=== PATIENT | female | born 1960 | race Caucasian/White ===

== ENCOUNTER → 2017-03-26 | Outpatient (CLI) | payer OTHER ==
[~2017-03-26] MED LIST: DIOVAN160 MG PO; FISH OIL 1,001000 M2 PO; PEPCID20 MG PO; PREMPRO 0.3 MG1 EACH PO; TRILIPIX135 MG PO
== END ==
LOC: RAD 03-22 13:36
DX: Z12.31 Encounter for screening mammogram for malignant neoplasm of breast (principal)

== ENCOUNTER → 2018-06-11 | Outpatient (CLI) | payer OTHER | LOC: RAD 11:21 | DX: Z12.31 Encounter for screening mammogram for malignant neoplasm of breast (principal) ==

== ENCOUNTER → 2018-10-13 | Outpatient (CLI) | payer OTHER ==
--- NOTE | 2018-10-13 14:38 | P ---
[facility] [place] [address] PROCEDURE REPORT Name: NICOLLE CARLSON Room #: REG TOSHIA Flores#: [id number] Admission: 10/13/18 ������������������ Attend Phys: Rangel Sim Discharge: ������������������ Date of : 58 Report #: [id number] THIS REPORT FOR: //name// CC: Rangel Gordon MD DATE OF SERVICE: 10/13/2018 PROCEDURE PERFORMED: Colonoscopy with biopsies. HISTORY OF PRESENT ILLNESS: The patient is a 58-year-old female with a history of colon polyps in 2012, here for a routine followup. She denies any symptoms. No family history of colon cancer. DESCRIPTION OF PROCEDURE: The risks and benefits of the procedure were explained to the patient; those risks including but not limited to bleeding, perforation and the risk of sedation. She understood these risks and gave informed consent. Sedation was given using propofol per Anesthesia. Next, a digital rectal exam was initially performed, which was normal. Next, using a standard Olympus colonoscope, the scope was placed in the patient's anus and advanced under direct vision to the cecum. The overall prep was excellent. The cecum and ileocecal valve were normal in appearance. Ascending, transverse and descending colon were normal. A few small diverticula were noted in the sigmoid colon; no evidence of inflammation. A 3-mm sessile polyp was noted. This was removed by cold forceps. The rectal mucosa was normal on retroflexion; no abnormalities were noted. The scope was then withdrawn and the procedure terminated. The patient tolerated the procedure well. IMPRESSION: 1. Small colonic polyp. 2. Sigmoid diverticulosis. 3. Otherwise, normal colonoscopy. RECOMMENDATIONS: 1. Await biopsy results. 2. If the polyp is hyperplastic, repeat in 10 years; if adenomatous polyp, repeat in 5 years. Thank you for allowing me to participate in her care. ��������������������������������������������� <ELECTRONICALLY SIGNED> ���������������������������������������� By: Rangel Rossi MD ��������������������������������������������� 10/13/18 [id number] [id number] Rangel Rossi MD /nt
--- NOTE | 2018-10-15 11:07 | PATH ---
[facility] [address] [place] [address] PATHOLOGY RPT PROCEDURE Name: NICOLLE CARLSON Room #: REG TOSHIA Silverio.#: [id number] ������������������ Admission: 10/13/18 ������������������ Date of : 58 Discharge: Report #: [id number] Path Case #: [id number] [facility] Accession Number: [id number] . 01 Material submitted: . colon - SIGMOID COLON POLYP. Modifiers: sigmoid . 01 Clinical history: . History of polyp . 02 Diagnosis: Polyp, sigmoid colon polyp, endoscopic biopsy: - Inflamed hyperplastic polyp. - Negative for dysplasia. . (IUV:mml; 10/14/2018) QL/10/14/2018 . 02 Electronically signed: . Brenda Banuelos MD, Pathologist NPI- [id number] . 01 Gross description: . The specimen is received in formalin, labeled "Luerla Ken, sigmoid colon polyp". Received are two segments of pale ferris soft tissue ranging in size from 0.3 to 0.4 cm in maximum dimensions. The specimen is submitted entirely in cassette A1. (CAA; 10/13/2018) QAC/QAC . 02 Pathologist provided ICD-10: K63.5 . 02 CPT . 852762 Specimen Comment: A courtesy copy of this report has been sent to Specimen Comment: [phone]. Specimen Comment: Report sent to Performed at: [address], [place] [id number] MD Juanjo Preciado MD Phone: [phone] Performed at: [address] [id number] MD Brenda Banuelos MD Phone: [phone]
== END | disposition home or self-care (01) ==
LOC: GI 07:08
DX: Z12.11 Encounter for screening for malignant neoplasm of colon (principal); Z86.010 Personal history of colon polyps; K63.5 Polyp of colon; K57.30 Diverticulosis of large intestine without perforation or abscess without bleeding; Z79.899 Other long term (current) drug therapy
CPT/HCPCS: 62110; 62900

== ENCOUNTER → 2019-09-01 | Outpatient (CLI) | payer OTHER | LOC: BC 14:08 → RAD 14:38 | DX: Z12.31 Encounter for screening mammogram for malignant neoplasm of breast (principal) ==

== ENCOUNTER → 2020-06-17 | Outpatient (CLI) | payer OTHER ==
[2020-06-17 08:42] LABS: ABSOLUTE NEUTROPHILS 3.2 thou/uL (1.4-8.2); EOSINOPHILS 1.4 % (0.0-3.0); HEMATOCRIT 44.9 % (37.0-47.0); HEMOGLOBIN 14.8 gm/dL (12.0-15.0); LYMPHOCYTES 34.3 % (24.0-44.0); MCH 30.3 pg (26.0-34.0); MCV 91.8 fL (80.0-100.0); MONOCYTES 6.6 % (1.0-8.0); PLATELET COUNT 255 thou/uL (150-400); POLYS 56.7 % (36.0-66.0); RDW 13.2 % (10.5-14.5); WBC 5.6 thou/uL (4.0-11.0)
[2020-06-17 09:01] LABS: ALBUMIN 4.4 g/dL (3.4-5.0); ANION GAP 8 mmol/L (7-16); BUN 14 mg/dL (7-18); CALCIUM 9.3 mg/dL (8.5-10.1); CHLORIDE 103 mmol/L (98-107); CHOLESTEROL 166 mg/dL (<200); CO2 28 mmol/L (21-32); CREATININE 0.9 mg/dL (0.6-1.0); GLUCOSE 91 mg/dL (74-106); HDL CHOLESTEROL 49 mg/dL (>40); LDL CHOLESTEROL 94 mg/dL (<100); SGOT 15 U/L (15-37); SGPT 20 U/L (30-65); SODIUM 139 mmol/L (136-145); TC:HDL 3.4 Ratio (Not establshd); TOTAL BILIRUBIN 0.7 mg/dL (0.2-1.0); TOTAL PROTEIN 7.3 g/dL (6.4-8.2); TRIGLYCERIDE 116 mg/dL (<150); VLDL 23 mg/dL (<40)
== END ==
LOC: LAB 06:58 → RAD 06:58
PROVIDERS: ATTEND Family Medicine
DX: M77.8 Other enthesopathies, not elsewhere classified (principal); M79.671 Pain in right foot; E78.5 Hyperlipidemia, unspecified; E55.9 Vitamin D deficiency, unspecified; Z78.0 Asymptomatic menopausal state

== ENCOUNTER → 2020-09-06 | Outpatient (CLI) | payer OTHER | LOC: BC 09:04 | PROVIDERS: ATTEND Family Medicine | DX: Z12.31 Encounter for screening mammogram for malignant neoplasm of breast (principal) ==